=== PATIENT | male | born 2000 | race African-American/Black ===

== ENCOUNTER 2019-01-07 13:43 | Inpatient (IN) | payer BC ==
[~2019-01-07] VITALS: Ht 188 cm; Wt 77.1 kg
[2019-01-07] MEDS ORDERED: LIDO:MAALOX 1:1 20 ML SINGLE DOSE. SWSW ONE (14:45)
--- NOTE | 2019-01-07 15:09 | RAD ---
CHEST PA LATERAL CLINICAL INDICATION: CHEST PAIN SINCE THIS MORNING COMPARISON: None FINDINGS: Heart is normal in size. Moderate-sized right pneumothorax is seen. Left lung is clear. No mediastinal shift. Visualized bony thorax is within normal limits. IMPRESSION: Moderate-sized right pneumothorax without mediastinal shift. Critical findings were identified on 01/07/2019 3:03 PM, read back and verified with PACKAGE SEALER MACHINE Bafus on 01/07/2019 3:[address] Hugo Palomino DO. Electronically signed by: Hugo Palomino DO (01/07/2019 3:06 PM) [facility]
[2019-01-07] MEDS ORDERED: fentaNYL PF VIAL 100 MCG/2 ML VIAL ONE (15:25)
[2019-01-07] MEDS ORDERED: fentaNYL PF VIAL 100 MCG/2 ML VIAL IV ONE ×2 (15:30→16:45)
--- NOTE | 2019-01-07 15:31 | PHYS DOC ---
Past Medical History Past Medical History: No Pertinent History (TEETEE HOLT APRN) Past Surgical History: No Surgical History (TEETEE HOLT APRN) Alcohol Use: None Drug Use: None (TEETEE HOLT APRN) Adult General Chief Complaint Chief Complaint: CHEST WALL PAIN HPI HPI Patient is a 18 year old who presents with mid chest pain that started last night with sharp pain with inspiration and shortness of air. Patient rates his pain a 7 out of 10. Patient is belching the room. (TEETEE HOLT APRN) Review of Systems Review of Systems Constitutional: Denies fever or chills [] Eyes: Denies change in visual acuity, redness, or eye pain [] HENT: Denies nasal congestion or sore throat [] Respiratory: Denies cough. shortness of breath [] Cardiovascular: Sharp chest pain with an inspiration GI: Denies abdominal pain, nausea, vomiting, bloody stools or diarrhea [] : Denies dysuria or hematuria [] Musculoskeletal: Denies back pain or joint pain [] Integument: Denies rash or skin lesions [] Neurologic: Denies headache, focal weakness or sensory changes [] All other systems were reviewed and found to be within normal limits, except as documented in this note. (TEETEE HOLT APRN) Current Medications Current Medications Current Medications Medications (Trade) Dose Ordered Sig/Bri Start Time Stop Time Status Last Admin Dose Admin Acetaminophen (Tylenol) 650 mg PRN Q4HRS PRN 01/07/19 16:15 Al Hydroxide/Mg Hydroxide (Mylanta Plus Xs) 30 ml PRN DAILY PRN 01/07/19 16:15 Albuterol Sulfate (Ventolin Neb Soln) 2.5 mg PRN Q4HRS PRN 01/07/19 16:15 Clonidine HCl (Catapres) 0.1 mg PRN Q6HRS PRN 01/07/19 16:15 Diphenhydramine HCl (Benadryl) 25 mg PRN Q4HRS PRN 01/07/19 16:15 Docusate Sodium (Colace) 100 mg PRN BID PRN 01/07/19 16:15 Fentanyl Citrate (Fentanyl 2ml Vial) 100 mcg STK-MED ONCE 01/07/19 15:25 01/07/19 15:26 DC Guaifenesin (Robitussin) 200 mg PRN Q4HRS PRN 01/07/19 16:15 Lorazepam (Ativan) 0.5 mg PRN Q4HRS PRN 01/07/19 16:15 Multi-Ingredient Mouthwash/Gargle (Gi Cocktail) 20 ml 1X ONCE 01/07/19 14:45 01/07/19 14:57 DC 01/07/19 15:05 20 ML Ondansetron HCl (Zofran) 4 mg PRN Q4HRS PRN 01/07/19 16:15 Sodium Monofluorophosphate (Fleet Adult) 133 ml PRN DAILY PRN 01/07/19 16:15 Zolpidem Tartrate (Ambien) 5 mg PRN QHS PRN 01/07/19 16:15 (DAMON FRANKLIN MD) Allergies Allergies Allergies Coded Allergies Type Severity Reaction Last Updated Verified No Known Drug Allergies 01/07/19 No (DAMON FRANKLIN MD) Physical Exam Physical Exam Constitutional: Well developed, well nourished, no acute distress, non-toxic appearance. [] HENT: Normocephalic, atraumatic, bilateral external ears normal, oropharynx moist, no oral exudates, nose normal. [] Eyes: PERRLA, EOMI, conjunctiva normal, no discharge. [] Neck: Normal range of motion, no tenderness, supple, no stridor. [] Cardiovascular:Heart rate regular rhythm, no murmur [] Lungs & Thorax: Bilateral upper breath sounds clear to auscultation, Lower lung lobes diminished. [] Abdomen: Bowel sounds normal, soft, no tenderness, no masses, no pulsatile masses. [] Skin: Warm, dry, no erythema, no rash. [] Back: No tenderness, no CVA tenderness. [] Extremities: No tenderness, no cyanosis, no clubbing, ROM intact, no edema. [] Neurologic: Alert and oriented X 3, normal motor function, normal sensory function, no focal deficits noted. [] Psychologic: Affect normal, judgement normal, mood normal. [] (TEETEE HOLT APRN) Current Patient Data Vital Signs Vital Signs Date Time Temp Pulse Resp B/P (MAP) Pulse Ox O2 Delivery O2 Flow Rate FiO2 3/18/19 15:33 18 98 Room Air 01/07/19 14:11 97.8 71 148/72 (97) 97.8 (DAMON FRANKLIN MD) EKG EKG [] (TEETEE HOLT APRN) Radiology/Procedures Radiology/Procedures [] (TEETEE HOLT APRN) Radiology/Procedures PROCEDURE: CHEST PA & LATERAL CHEST PA LATERAL CLINICAL INDICATION: CHEST PAIN SINCE THIS MORNING COMPARISON: None FINDINGS: Heart is normal in size. Moderate-sized right pneumothorax is seen. Left lung is clear. No mediastinal shift. Visualized bony thorax is within normal limits. IMPRESSION: Moderate-sized right pneumothorax without mediastinal shift. PROCEDURE: CHEST AP ONLY Indication:CHEST TUBE PLACEMENT TECHNIQUE:Portable AP chest X-ray COMPARISON:Study from the same day earlier FINDINGS: Heart is normal in size. Interval placement of right-sided chest tube with resolution of previously seen pneumothorax. Lungs are clear. Bones within normal limits. IMPRESSION: Interval resolution of previous is seen right pneumothorax status post placement of right chest tube. (DAMON FRANKLIN MD) Impressions: [facility] [address] [place], [place] [id number] IMAGING REPORT Signed PATIENT: KESHAV WAGNER ACCOUNT: [id number] : 2000 LOCATION: ER AGE: 18 SEX: M EXAM STATUS: REG ER ORD. PHYSICIAN: TEETEE HOLT APRN REASON: chest pain since this morning PROCEDURE: CHEST PA & LATERAL CHEST PA LATERAL CLINICAL INDICATION: CHEST PAIN SINCE THIS MORNING COMPARISON: None FINDINGS: Heart is normal in size. Moderate-sized right pneumothorax is seen. Left lung is clear. No mediastinal shift. Visualized bony thorax is within normal limits. IMPRESSION: Moderate-sized right pneumothorax without mediastinal shift. Critical findings were identified on 01/07/2019 3:03 PM, read back and verified with INJECTION MOLDING TECHNICIAN Anais on 01/07/2019 3:[address] Hugo Palomino DO. Electronically signed by: Hugo Palomino DO (01/07/2019 3:06 PM) [facility] DICTATED and SIGNED BY: HUGO PALOMINO DO DATE: 01/07/19 [id number] (TEETEE HOLT APRN) Course & Med Decision Making Course & Med Decision Making Patient is a 18 year old who presents with mid chest pain that started last night with sharp pain with inspiration and shortness of air. Patient rates his pain a 7 out of 10. Patient is belching the room. Alert and oriented. Speaks in full clear sentences. Vital signs are 100% on room air, 71 heart rate, 140/72, afebrile. Skin pink warm and dry. Mucous membranes moist. Denies dizziness, abdominal pain, nausea, vomiting, or diarrhea, drug use, cough, recent illness, fever. PERC negative, WELLs negative. Lungs are clear to auscultation in upper lobes but slightly diminished in lower lobes. Ambulatory with a steady gait. Ambulatory with a steady gait. Chest x-ray shows Moderate-sized right pneumothorax without mediastinal shift. I have spoken to the family about findings and Dr. Franklin who is now assuming care. (TEETEE HOLT APRN) Course & Med Decision Making 4:25 PM: Patient is a 18-year-old presented with shortness of breath and chest pain, was found to have a pneumothorax. I assumed care from nurse practitioner. He did not exhibit clinical signs or radiographic findings of tension. An arrow pneumocath was placed in the right chest after informed consent was obtained from the patient with resultant improvement in his symptoms and radiographic findings. The patient will be admitted to the hospitalist who has graciously agreed to accept the patient. Pulmonary was consulted as well PROCEDURE NOTE: The right anterior chest wall is prepped with Betadine, as well as a ChloraPrep , after timeout was performed, and informed consent was obtained from the patient. The skin was anesthetized with 1% lidocaine, and the Arrow 8 [place] pneumocath was inserted in the second intercostal space, which resulted in improvement of the patient's clinical symptoms and breath sounds. Follow-up chest x-ray was obtained. CRITICAL CARE TIME: 45 Minutes, excluding any procedures and care of other patients. (DAMON FRANKLIN MD) Dragon Disclaimer Dragon Disclaimer This electronic medical record was generated, in whole or in part, using a voice recognition dictation system. (TEETEE HOLT APRN) Departure Departure Impression: Primary Impression: Pneumothorax Disposition: ADMITTED INPATIENT Admitting Physician: Other (Juliana) (DAMON FRANKLIN MD) Condition: STABLE Referrals: NO PCP (PCP) TEETEE HOLT APRN Jan 07, 2019 15:31 DAMON FRANKLIN MD Jan 07, 2019 16:28
--- NOTE | 2019-01-07 16:09 | RAD ---
Indication:CHEST TUBE PLACEMENT TECHNIQUE:Portable AP chest X-ray COMPARISON:Study from the same day earlier FINDINGS: Heart is normal in size. Interval placement of right-sided chest tube with resolution of previously seen pneumothorax. Lungs are clear. Bones within normal limits. IMPRESSION: Interval resolution of previous is seen right pneumothorax status post placement of right chest tube. Electronically signed by: uHgo Palomino DO (01/07/2019 4:06 PM) [facility]
[2019-01-07] MEDS ORDERED: MAG HYDROX/ALUMINUM HYD/SIMETH 30 ML ORAL.SUSP PO PRN (16:15)
[2019-01-07] MEDS ORDERED: cloNIDine HCL 0.1 MG TABLET PO PRN (16:15)
[2019-01-07] MEDS ORDERED: guaiFENesin ORAL 200 MG/10 ML LIQUID. PO PRN (16:15)
[2019-01-07] MEDS ORDERED: ZOLPIDEM 5 MG TABLET. PO PRN (16:15)
[2019-01-07] MEDS ORDERED: DOCUSATE SODIUM 100 MG CAPSULE. PO PRN (16:15)
[2019-01-07] MEDS ORDERED: SODIUM PHOSPHATES 19/7GM 133 ML ENEMA. PR PRN (16:15)
[2019-01-07] MEDS ORDERED: ALBUTEROL SULFATE 2.5 MG/3 ML NEBU. NEB PRN (16:15)
[2019-01-07] MEDS ORDERED: LORazepam 0.5 MG TABLET PO PRN (16:15)
[2019-01-07 17:03] LABS: BASO % 0 % (0-3); EOS % 0 % (0-3); HEMATOCRIT 41.7 % (39.0-53.0); HEMOGLOBIN 13.5 g/dL (13.0-17.5); LYMPH # 1.8 x10^3/uL (1.0-4.8); LYMPH % 16 % (24-48); MEAN CORPUSCULAR HEMOGLOBIN 26 pg (25-35); MEAN CORPUSCULAR HGB CONC 32 g/dL (31-37); MEAN CORPUSCULAR VOLUME 80 fL (79-100); MONO # 0.7 x10^3/uL (0.0-1.1); MONO % 6 % (0-9); NEUT # 9.1 x10^3uL (1.8-7.7); NEUT % 78 % (31-73); PLATELET COUNT 184 x10^3/uL (140-400); RED BLOOD COUNT 5.25 x10^6/uL (4.30-5.70); WHITE BLOOD COUNT 11.7 x10^3/uL (4.0-11.0)
[2019-01-07 17:12] LABS: CALCIUM 9.3 mg/dL (8.5-10.1); CREATININE 1.2 mg/dL (0.7-1.3); GFR 93.4; POTASSIUM 3.4 mmol/L (3.5-5.1)
[2019-01-07 17:45] VITALS: BP 136/71
[2019-01-07] MEDS: ACETAMINOPHEN 325 MG TABLET. PO PRN (19:30)
[2019-01-07 19:46] VITALS: BP 133/72
[2019-01-07] MEDS: KETOROLAC 30 MG/ML VIAL. IV PRN (20:49)
[2019-01-07] MEDS: diphenhydrAMINE 50 MG/ML VIAL IVP PRN (20:49)
--- NOTE | 2019-01-07 20:49 | PDOC1 ---
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 He describes pain as a sharp sensation associated shortness of breath. The patient' s pain was rated initial at as 6 out of 10 subsequently progressing to a 9 out of 10 once he got home from work. Patient denies palpitations no radiation to the jaw or the arm or history of coughing spells nor recent history of infections were given but patient. Due to the severe pain he experiences decided to come to the emergency department for evaluation where he was found to have a right pneumothorax, chest tube has been placed we have been asked to admit the patient for further care. At the time my evaluation patient is in no apparent distress pain seems to be well-controlled no nausea vomiting has been reported no other concerns or complaints were voiced by the patient. Plan of care is going detail all his concerns address to the best of my abilities Past Medical History Cardiovascular: No pertinent hx Past Surgical History Past Surgical History: No pertinent history Social History Smoke: No ALCOHOL: none Drugs: None Current Medications Current Medications Current Medications Medications (Trade) Dose Ordered Sig/Bri Start Time Stop Time Status Last Admin Dose Admin Acetaminophen (Tylenol) 650 mg PRN Q4HRS PRN 01/07/19 16:15 Al Hydroxide/Mg Hydroxide (Mylanta Plus Xs) 30 ml PRN DAILY PRN 01/07/19 16:15 Albuterol Sulfate (Ventolin Neb Soln) 2.5 mg PRN Q4HRS PRN 01/07/19 16:15 Clonidine HCl (Catapres) 0.1 mg PRN Q6HRS PRN 01/07/19 16:15 Diphenhydramine HCl (Benadryl) 25 mg PRN Q4HRS PRN 01/07/19 16:15 Docusate Sodium (Colace) 100 mg PRN BID PRN 01/07/19 16:15 Fentanyl Citrate (Fentanyl 2ml Vial) 50 mcg 1X ONCE 01/07/19 16:45 01/07/19 16:46 DC 01/07/19 16:51 50 MCG Guaifenesin (Robitussin) 200 mg PRN Q4HRS PRN 01/07/19 16:15 Ketorolac Tromethamine (Toradol 30mg Vial) 30 mg PRN Q6HRS PRN 01/07/19 19:45 01/12/19 19:44 Lorazepam (Ativan) 0.5 mg PRN Q4HRS PRN 01/07/19 16:15 Multi-Ingredient Mouthwash/Gargle (Gi Cocktail) 20 ml 1X ONCE 01/07/19 14:45 01/07/19 14:57 DC 01/07/19 15:05 20 ML Ondansetron HCl (Zofran) 4 mg PRN Q4HRS PRN 01/07/19 16:15 Sodium Monofluorophosphate (Fleet Adult) 133 ml PRN DAILY PRN 01/07/19 16:15 Zolpidem Tartrate (Ambien) 5 mg PRN QHS PRN 01/07/19 16:15 Allergies Allergies Allergies Coded Allergies Type Severity Reaction Last Updated Verified No Known Drug Allergies 01/07/19 No ROS Review of System CONSTITUTIONAL: No fever or chills EYES: No recent changes SKIN: No rash or itching CARDIOVASCULAR: No chest pain, syncope, palpitations, or edema RESPIRATORY: No SOB or cough GASTROINTESTINAL: No nausea, vomiting or abdominal pain NEUROLOGICAL: No headaches or weakness ENDOCRINE: No cold or heat intolerance GENITOURINARY: No urgency or frequency of urination MUSCULOSKELETAL: No back pain or joint pain LYMPHATICS: No enlarged lymph nodes PSYCHIATRIC: No anxiety or depression Physical Exam Physical Exam GEN.: No apparent distress. Alert and oriented. HEENT: Head is normocephalic, atraumatic NECK: Supple. LUNGS: Clear to auscultation. HEART: RRR, S1, S2 present. Peripheral pulses intact ABDOMEN: Soft, nontender. Positive bowel sounds. EXTREMITIES: Without any cyanosis. NEUROLOGIC: Normal speech, normal tone PSYCHIATRIC: Normal affect, normal mood. SKIN: No ulcerations Vitals Vitals Vital Signs Date Time Temp Pulse Resp B/P (MAP) Pulse Ox O2 Delivery O2 Flow Rate FiO2 01/07/19 19:47 99 Room Air 01/07/19 19:46 98.4 69 18 133/72 (92) 98.4 01/07/19 17:45 2.0 Labs Labs Laboratory Tests Test 01/07/19 16:57 White Blood Count 11.7 x10^3/uL (4.0-11.0) Red Blood Count 5.25 x10^6/uL (4.30-5.70) Hemoglobin 13.5 g/dL (13.0-17.5) Hematocrit 41.7 % (39.0-53.0) Mean Corpuscular Volume 80 fL (79-100) Mean Corpuscular Hemoglobin 26 pg (25-35) Mean Corpuscular Hemoglobin Concent 32 g/dL (31-37) Red Cell Distribution Width 14.0 % (11.5-14.5) Platelet Count 184 x10^3/uL (140-400) Neutrophils (%) (Auto) 78 % (31-73) Lymphocytes (%) (Auto) 16 % (24-48) Monocytes (%) (Auto) 6 % (0-9) Eosinophils (%) (Auto) 0 % (0-3) Basophils (%) (Auto) 0 % (0-3) Neutrophils # (Auto) 9.1 x10^3uL (1.8-7.7) Lymphocytes # (Auto) 1.8 x10^3/uL (1.0-4.8) Monocytes # (Auto) 0.7 x10^3/uL (0.0-1.1) Eosinophils # (Auto) 0.0 x10^3/uL (0.0-0.7) Basophils # (Auto) 0.0 x10^3/uL (0.0-0.2) Sodium Level 139 mmol/L (136-145) Potassium Level 3.4 mmol/L (3.5-5.1) Chloride Level 103 mmol/L (98-107) Carbon Dioxide Level 26 mmol/L (21-32) Anion Gap 10 (6-14) Blood Urea Nitrogen 15 mg/dL (8-26) Creatinine 1.2 mg/dL (0.7-1.3) Estimated GFR (Cockcroft-Gault) 93.4 Glucose Level 112 mg/dL (70-99) Calcium Level 9.3 mg/dL (8.5-10.1) Laboratory Tests Test 01/07/19 16:57 White Blood Count 11.7 x10^3/uL (4.0-11.0) Red Blood Count 5.25 x10^6/uL (4.30-5.70) Hemoglobin 13.5 g/dL (13.0-17.5) Hematocrit 41.7 % (39.0-53.0) Mean Corpuscular Volume 80 fL (79-100) Mean Corpuscular Hemoglobin 26 pg (25-35) Mean Corpuscular Hemoglobin Concent 32 g/dL (31-37) Red Cell Distribution Width 14.0 % (11.5-14.5) Platelet Count 184 x10^3/uL (140-400) Neutrophils (%) (Auto) 78 % (31-73) Lymphocytes (%) (Auto) 16 % (24-48) Monocytes (%) (Auto) 6 % (0-9) Eosinophils (%) (Auto) 0 % (0-3) Basophils (%) (Auto) 0 % (0-3) Neutrophils # (Auto) 9.1 x10^3uL (1.8-7.7) Lymphocytes # (Auto) 1.8 x10^3/uL (1.0-4.8) Monocytes # (Auto) 0.7 x10^3/uL (0.0-1.1) Eosinophils # (Auto) 0.0 x10^3/uL (0.0-0.7) Basophils # (Auto) 0.0 x10^3/uL (0.0-0.2) Sodium Level 139 mmol/L (136-145) Potassium Level 3.4 mmol/L (3.5-5.1) Chloride Level 103 mmol/L (98-107) Carbon Dioxide Level 26 mmol/L (21-32) Anion Gap 10 (6-14) Blood Urea Nitrogen 15 mg/dL (8-26) Creatinine 1.2 mg/dL (0.7-1.3) Estimated GFR (Cockcroft-Gault) 93.4 Glucose Level 112 mg/dL (70-99) Calcium Level 9.3 mg/dL (8.5-10.1) VTE Prophylaxis Ordered VTE Prophylaxis Devices: Yes VTE Pharmacological Prophylaxi: No Assessment/Plan Assessment/Plan Spontaneous right pneumothorax Plan: Pain management Consult Dr. Hendricks for chest tube management further recommendations based on clinical course. DVT prophylaxis: SCD NOBLE MUNOZ MD Jan 07, 2019 20:49
[2019-01-07 23:07] VITALS: BP 142/76
[2019-01-08] MEDS: ACETAMINOPHEN 325 MG TABLET. PO PRN (00:36)
[2019-01-08] MEDS: diphenhydrAMINE 50 MG/ML VIAL IVP PRN (00:39)
[2019-01-08 03:14] VITALS: BP 119/68
[2019-01-08] MEDS: ONDANSETRON PF 4 MG/2 ML VIAL. IV PRN ×2 (05:53→20:59)
[2019-01-08 07:00] VITALS: BP 137/71
--- NOTE | 2019-01-08 08:01 | PDOC ---
PROGRESS NOTES Chief Complaint Chief Complaint Spontaneous right pneumothorax Hypokalemia Plan: Pain management Consult Dr. Hendricks for chest tube management further recommendations based on clinical course. 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 He describes pain as a sharp sensation associated shortness of breath. The patient's pain was rated initial at as 6 out of 10 subsequently progressing to a 9 out of 10 once he got home from work. Patient denies palpitations no radiation to the jaw or the arm or history of coughing spells nor recent history of infections were given but patient. Due to the severe pain he experiences decided to come to the emergency department for evaluation where he was found to have a right pneumothorax, chest tube has been placed we have been asked to admit the patient for further care. He has some pain and nausea this morning. No air leak. CXR post CT placement shows resolution of PTX. Plan: Consult pulm. Likely needs high res CT to assess for apical blebs as patient has no significant pulm hx. Pain control, IV fentanyl and toradol added Zofran and compazine for his nausea Vitals Vitals Vital Signs Date Time Temp Pulse Resp B/P (MAP) Pulse Ox O2 Delivery O2 Flow Rate FiO2 01/08/19 03:14 98.1 50 16 119/68 (85) 100 Room Air 98.1 01/07/19 20:00 2.0 Physical Exam General: Alert, Oriented X3, Cooperative Heart: Regular rate, Normal S1, Normal S2, No murmurs, Gallops Lungs: Clear Abdomen: Normal bowel sounds, Soft, No tenderness, No hepatosplenomegaly Extremities: No clubbing, No cyanosis, No edema, Normal pulses Skin: No rashes, No breakdown, No significant lesion Labs LABS Laboratory Tests Test 01/07/19 16:57 White Blood Count 11.7 x10^3/uL (4.0-11.0) Red Blood Count 5.25 x10^6/uL (4.30-5.70) Hemoglobin 13.5 g/dL (13.0-17.5) Hematocrit 41.7 % (39.0-53.0) Mean Corpuscular Volume 80 fL (79-100) Mean Corpuscular Hemoglobin 26 pg (25-35) Mean Corpuscular Hemoglobin Concent 32 g/dL (31-37) Red Cell Distribution Width 14.0 % (11.5-14.5) Platelet Count 184 x10^3/uL (140-400) Neutrophils (%) (Auto) 78 % (31-73) Lymphocytes (%) (Auto) 16 % (24-48) Monocytes (%) (Auto) 6 % (0-9) Eosinophils (%) (Auto) 0 % (0-3) Basophils (%) (Auto) 0 % (0-3) Neutrophils # (Auto) 9.1 x10^3uL (1.8-7.7) Lymphocytes # (Auto) 1.8 x10^3/uL (1.0-4.8) Monocytes # (Auto) 0.7 x10^3/uL (0.0-1.1) Eosinophils # (Auto) 0.0 x10^3/uL (0.0-0.7) Basophils # (Auto) 0.0 x10^3/uL (0.0-0.2) Sodium Level 139 mmol/L (136-145) Potassium Level 3.4 mmol/L (3.5-5.1) Chloride Level 103 mmol/L (98-107) Carbon Dioxide Level 26 mmol/L (21-32) Anion Gap 10 (6-14) Blood Urea Nitrogen 15 mg/dL (8-26) Creatinine 1.2 mg/dL (0.7-1.3) Estimated GFR (Cockcroft-Gault) 93.4 Glucose Level 112 mg/dL (70-99) Calcium Level 9.3 mg/dL (8.5-10.1) Comment Review of Relevant I have reviewed the following items davide (where applicable) has been applied. Labs Laboratory Tests Test 01/07/19 16:57 White Blood Count 11.7 x10^3/uL (4.0-11.0) Red Blood Count 5.25 x10^6/uL (4.30-5.70) Hemoglobin 13.5 g/dL (13.0-17.5) Hematocrit 41.7 % (39.0-53.0) Mean Corpuscular Volume 80 fL (79-100) Mean Corpuscular Hemoglobin 26 pg (25-35) Mean Corpuscular Hemoglobin Concent 32 g/dL (31-37) Red Cell Distribution Width 14.0 % (11.5-14.5) Platelet Count 184 x10^3/uL (140-400) Neutrophils (%) (Auto) 78 % (31-73) Lymphocytes (%) (Auto) 16 % (24-48) Monocytes (%) (Auto) 6 % (0-9) Eosinophils (%) (Auto) 0 % (0-3) Basophils (%) (Auto) 0 % (0-3) Neutrophils # (Auto) 9.1 x10^3uL (1.8-7.7) Lymphocytes # (Auto) 1.8 x10^3/uL (1.0-4.8) Monocytes # (Auto) 0.7 x10^3/uL (0.0-1.1) Eosinophils # (Auto) 0.0 x10^3/uL (0.0-0.7) Basophils # (Auto) 0.0 x10^3/uL (0.0-0.2) Sodium Level 139 mmol/L (136-145) Potassium Level 3.4 mmol/L (3.5-5.1) Chloride Level 103 mmol/L (98-107) Carbon Dioxide Level 26 mmol/L (21-32) Anion Gap 10 (6-14) Blood Urea Nitrogen 15 mg/dL (8-26) Creatinine 1.2 mg/dL (0.7-1.3) Estimated GFR (Cockcroft-Gault) 93.4 Glucose Level 112 mg/dL (70-99) Calcium Level 9.3 mg/dL (8.5-10.1) Laboratory Tests Test 01/07/19 16:57 White Blood Count 11.7 x10^3/uL (4.0-11.0) Red Blood Count 5.25 x10^6/uL (4.30-5.70) Hemoglobin 13.5 g/dL (13.0-17.5) Hematocrit 41.7 % (39.0-53.0) Mean Corpuscular Volume 80 fL (79-100) Mean Corpuscular Hemoglobin 26 pg (25-35) Mean Corpuscular Hemoglobin Concent 32 g/dL (31-37) Red Cell Distribution Width 14.0 % (11.5-14.5) Platelet Count 184 x10^3/uL (140-400) Neutrophils (%) (Auto) 78 % (31-73) Lymphocytes (%) (Auto) 16 % (24-48) Monocytes (%) (Auto) 6 % (0-9) Eosinophils (%) (Auto) 0 % (0-3) Basophils (%) (Auto) 0 % (0-3) Neutrophils # (Auto) 9.1 x10^3uL (1.8-7.7) Lymphocytes # (Auto) 1.8 x10^3/uL (1.0-4.8) Monocytes # (Auto) 0.7 x10^3/uL (0.0-1.1) Eosinophils # (Auto) 0.0 x10^3/uL (0.0-0.7) Basophils # (Auto) 0.0 x10^3/uL (0.0-0.2) Sodium Level 139 mmol/L (136-145) Potassium Level 3.4 mmol/L (3.5-5.1) Chloride Level 103 mmol/L (98-107) Carbon Dioxide Level 26 mmol/L (21-32) Anion Gap 10 (6-14) Blood Urea Nitrogen 15 mg/dL (8-26) Creatinine 1.2 mg/dL (0.7-1.3) Estimated GFR (Cockcroft-Gault) 93.4 Glucose Level 112 mg/dL (70-99) Calcium Level 9.3 mg/dL (8.5-10.1) Medications Current Medications Multi-Ingredient Mouthwash/Gargle (Gi Cocktail) 20 ml 1X ONCE SWSW Last administered on 01/07/19at 15:05; Start 01/07/19 at 14:45; Stop 01/07/19 at 14:57 ; Status DC Fentanyl Citrate (Fentanyl 2ml Vial) 50 mcg 1X ONCE IV Last administered on at 15:33; Start 01/07/19 at 15:30; Stop 01/07/19 at 15:31; Status DC Fentanyl Citrate (Fentanyl 2ml Vial) 100 mcg STK-MED ONCE .ROUTE ; Start at 15:25; Stop 01/07/19 at 15:26; Status DC Ondansetron HCl (Zofran) 4 mg PRN Q4HRS PRN IV NAUSEA/VOMITING Last administered on 01/08/19 05:53; Start 01/07/19 at 16:15 Zolpidem Tartrate (Ambien) 5 mg PRN QHS PRN PO INSOMNIA; Start 01/07/19 at 16: 15 Acetaminophen (Tylenol) 650 mg PRN Q4HRS PRN PO TEMP OVER 100.4F OR MILD PAIN Last administered on 01/07/19 19:30; Start 01/07/19 at 16:15 Al Hydroxide/Mg Hydroxide (Mylanta Plus Xs) 30 ml PRN DAILY PRN PO HEARTBURN / GAS; Start 01/07/19 at 16:15 Clonidine HCl (Catapres) 0.1 mg PRN Q6HRS PRN PO SBP>160 OR DBP>90; Start 01/07 at 16:15 Sodium Monofluorophosphate (Fleet Adult) 133 ml PRN DAILY PRN IA CONSTIPATION; Start 01/07/19 at 16:15 Diphenhydramine HCl (Benadryl) 25 mg PRN Q4HRS PRN IVP ITCHING Last administered on 01/08/19 00:39; Start 01/07/19 at 16:15 Docusate Sodium (Colace) 100 mg PRN BID PRN PO CONSTIPATION; Start 01/07/19 at 16:15 Albuterol Sulfate (Ventolin Neb Soln) 2.5 mg PRN Q4HRS PRN NEB SHORTNESS OF BREATH; Start 01/07/19 at 16:15 Guaifenesin (Robitussin) 200 mg PRN Q4HRS PRN PO COUGH; Start 01/07/19 at 16:15 Lorazepam (Ativan) 0.5 mg PRN Q4HRS PRN PO ANXIETY / AGITATION Last administered on 01/07/19 20:49; Start 01/07/19 at 16:15 Fentanyl Citrate (Fentanyl 2ml Vial) 50 mcg 1X ONCE IV Last administered on 16:51; Start 01/07/19 at 16:45; Stop 01/07/19 at 16:46; Status DC Ketorolac Tromethamine (Toradol 30mg Vial) 30 mg PRN Q6HRS PRN IV PAIN Last administered on 01/07/19 20:49; Start 01/07/19 at 19:45; Stop 01/12/19 at 19:44 Vitals/I & O Vital Sign - Last 24 Hours 01/07/19 01/07/19 01/07/19 01/07/19 14:11 15:33 15:55 16:03 Temp 97.8 97.8 Pulse 71 62 60 Resp 20 18 16 15 B/P (MAP) 148/72 (97) 151/62 (91) 87/47 (60) Pulse Ox 100 98 100 100 O2 Delivery Room Air Room Air Nasal Cannula Nasal Cannula O2 Flow Rate 2.0 2.0 01/07/19 01/07/19 01/07/19 01/07/19 16:05 16:33 17:03 17:33 Pulse 70 60 66 64 Resp 16 16 15 16 B/P (MAP) 100/58 (72) 153/69 (97) 153/81 (105) 161/78 (105) Pulse Ox 100 100 100 100 O2 Delivery Nasal Cannula Nasal Cannula Nasal Cannula Nasal Cannula O2 Flow Rate 2.0 2.0 2.0 2.0 01/07/19 01/07/19 01/07/19 01/07/19 17:45 19:46 19:47 20:00 Temp 98.9 98.4 98.9 98.4 Pulse 61 69 Resp 16 18 B/P (MAP) 136/71 (92) 133/72 (92) Pulse Ox 100 100 99 O2 Delivery Nasal Cannula Room Air Room Air O2 Flow Rate 2.0 2.0 01/07/19 01/08/19 23:07 03:14 Temp 99.2 98.1 99.2 98.1 Pulse 61 50 Resp 16 16 B/P (MAP) 142/76 (98) 119/68 (85) Pulse Ox 100 100 O2 Delivery Room Air Room Air Intake and Output 01/07/19 01/07/19 01/08/19 15:00 23:00 07:00 Intake Total 500 ml 980 ml Balance 500 ml 980 ml ROME AGUIRRE MD Jan 08, 2019 08:01
[2019-01-08] MEDS ORDERED: POTASSIUM CHLORIDE 20 MEQ TABLET.ER. PO ONE (08:30)
[2019-01-08] MEDS: KETOROLAC 30 MG/ML VIAL. IV PRN ×2 (09:47→22:23)
--- NOTE | 2019-01-08 09:48 | RAD ---
Single view of the chest. 01/08/2019 9:13 AM Indication: POST CHEST TUBE PLACEMENT Comparison: Chest radiographs, yesterday Findings: Right thoracostomy tube remains in place. No pneumothorax is identified on current radiograph. The lungs are otherwise clear. Heart size is normal. No acute bony changes are seen. IMPRESSION: Right thoracostomy tube in place. No pneumothorax is identified. Electronically signed by: Herbert Starks MD (01/08/2019 9:46 AM) [id number]
--- NOTE | 2019-01-08 10:47 | CONS ---
DATE OF CONSULTATION: ATTENDING PHYSICIAN: Dr. Andrews REASON FOR CONSULTATION: Spontaneous pneumothorax. HISTORY OF PRESENT ILLNESS: The patient is a 18-year-old male who denies any significant tobacco use or substance abuse. 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 The patient says that this is the first time he ever had this kind of pain. He did not have any coughing spell prior to that. He was seen in the Emergency Room and was found to have moderate sized pneumothorax on the right side. He underwent small chest tube placement and his lung is now fully reexpanded. No other symptoms. No headaches, no nausea or vomiting, no diarrhea. However, he did have a bout of GI viral symptoms a week ago. PAST MEDICAL HISTORY: Unremarkable. PAST SURGICAL HISTORY: Unremarkable. SOCIAL HISTORY: He does not smoke and does not drink alcohol. ALLERGIES: None. MEDICATIONS: Reviewed as listed in the MRAD. SYSTEM REVIEW: As discussed in my history of present illness, otherwise noncontributory. PHYSICAL EXAMINATION: VITAL SIGNS: Stable. Pulse ox 100% on room air. NECK: Supple. LUNGS: Clear. CARDIOVASCULAR: Regular rate and rhythm. ABDOMEN: Soft. EXTREMITIES: With no pitting edema. LABORATORY DATA: Reviewed. White cell count 11.7 and hemoglobin 13.5. BUN and creatinine of 15 and 1.2. IMPRESSION: 1. Spontaneous right-sided pneumothorax in a patient who has no significant risk factors. The pneumothorax is now completely resolved. This is his first episode. We may do a CT of the chest to rule out any apical blebs. 2. No significant history of tobacco use. RECOMMENDATIONS: 1. The lung is now fully expanded after chest tube placement. I will place the chest tube to water seal. In next 24 hours, if there is no pneumo then we will consider doing clamping of the chest tube and then repeat chest x-ray. 2. We will also do a noncontrast CT chest tomorrow to assess for any apical blebs. 3. Pain control. 4. Discussed with patient and his father that if pneumothorax reoccurs in the same side in future, then he may need surgical intervention. FABRIZIO OCONNOR MD DR: VIOLETA/calin JOB#: [id number] / [id number]
[2019-01-08 10:53] VITALS: BP 128/63
--- NOTE | 2019-01-08 12:20 | NUR ---
Changed dressing on chest tube. This RN noted a scant amount of blood around the incision site when removing the old dressing. Site cleaned, 4x4 gauze, and transparent dressing applied to site. Pt tolerated without complaints.
[2019-01-08 15:00] VITALS: BP 135/79
--- NOTE | 2019-01-08 15:38 | NUR ---
SW following pt for anticipated dc needs. Chart reviewed. Pt lives at home with family. No discharge recommendation/SW needs noted at this time. Will continue to assess needs.
[2019-01-08 19:47] VITALS: BP 110/80
--- NOTE | 2019-01-08 21:15 | NUR ---
Patient complaining of increased pain [facility] Addendum: 01/08/19 at 2138 by Keturah Swanson RN Complaining of increased pain and soa upon inspiration, similar to that when he came to ER. Spoke with Dr. Lewis who advised to place chest tube back to wall suction and get CXR
--- NOTE | 2019-01-08 22:06 | RAD ---
PORTABLE CHEST 1V History: Chest tube, increasing pain, collapsed right lung Comparison: Exam earlier the same day Findings: AP portable view of the chest is submitted. There is again right chest tube with tip near the apex, no pneumothorax identified. Heart size is stable, within normal limits. There is no infiltrate or pleural fluid. Impression: 1. There is again small caliber right chest tube, no pneumothorax identified. Electronically signed by: Tj Yousif MD (01/08/2019 10:03 PM) [facility]
[2019-01-08 23:23] VITALS: BP 113/80
[2019-01-09 03:34] VITALS: BP 131/54
[2019-01-09 07:00] VITALS: BP 107/89
--- NOTE | 2019-01-09 07:47 | PDOC ---
PROGRESS NOTES Chief Complaint Chief Complaint Spontaneous right pneumothorax Hypokalemia Plan: Pain management Consult Dr. Hendricks for chest tube management further recommendations based on clinical course. 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 He describes pain as a sharp sensation associated shortness of breath. The patient's pain was rated initial at as 6 out of 10 subsequently progressing to a 9 out of 10 once he got home from work. Patient denies palpitations no radiation to the jaw or the arm or history of coughing spells nor recent history of infections were given but patient. Due to the severe pain he experiences decided to come to the emergency department for evaluation where he was found to have a right pneumothorax, chest tube has been placed we have been asked to admit the patient for further care. He has some pain and nausea this morning. No air leak. CXR post CT placement shows resolution of PTX. Plan: Consulted pulm. Likely needs high res CT to assess for apical blebs as patient has no significant pulm hx. Pain control, IV fentanyl and toradol added with good effect Zofran and compazine for his nausea Admitted for Spontaneous right-sided pneumothorax in a patient who has no significant risk factors. The pneumothorax is now completely resolved. This is his first episode. CT of the chest with no residual PTX or apical blebs. No significant history of tobacco use or asthma 1. The lung was fully expanded after chest tube placement. clamped the chest tube and if there is no pneumo then we will dc chest tube 2. CT chest with no apical blebs. 3. Pain control. 4. Discussed with patient and his father that if pneumothorax reoccurs in the same side in future, then he may need surgical intervention. Vitals Vitals Vital Signs Date Time Temp Pulse Resp B/P (MAP) Pulse Ox O2 Delivery O2 Flow Rate FiO2 01/09/19 07:00 98.4 70 18 107/89 (95) 100 Room Air 98.4 01/08/19 08:00 2.0 Physical Exam General: Alert, Oriented X3, Cooperative Heart: Regular rate, Normal S1, Normal S2, No murmurs, Gallops Lungs: Clear Abdomen: Normal bowel sounds, Soft, No tenderness, No hepatosplenomegaly Extremities: No clubbing, No cyanosis, No edema, Normal pulses Skin: No rashes, No breakdown, No significant lesion Comment Review of Relevant I have reviewed the following items davide (where applicable) has been applied. Labs Laboratory Tests Test 01/07/19 16:57 White Blood Count 11.7 x10^3/uL (4.0-11.0) Red Blood Count 5.25 x10^6/uL (4.30-5.70) Hemoglobin 13.5 g/dL (13.0-17.5) Hematocrit 41.7 % (39.0-53.0) Mean Corpuscular Volume 80 fL (79-100) Mean Corpuscular Hemoglobin 26 pg (25-35) Mean Corpuscular Hemoglobin Concent 32 g/dL (31-37) Red Cell Distribution Width 14.0 % (11.5-14.5) Platelet Count 184 x10^3/uL (140-400) Neutrophils (%) (Auto) 78 % (31-73) Lymphocytes (%) (Auto) 16 % (24-48) Monocytes (%) (Auto) 6 % (0-9) Eosinophils (%) (Auto) 0 % (0-3) Basophils (%) (Auto) 0 % (0-3) Neutrophils # (Auto) 9.1 x10^3uL (1.8-7.7) Lymphocytes # (Auto) 1.8 x10^3/uL (1.0-4.8) Monocytes # (Auto) 0.7 x10^3/uL (0.0-1.1) Eosinophils # (Auto) 0.0 x10^3/uL (0.0-0.7) Basophils # (Auto) 0.0 x10^3/uL (0.0-0.2) Sodium Level 139 mmol/L (136-145) Potassium Level 3.4 mmol/L (3.5-5.1) Chloride Level 103 mmol/L (98-107) Carbon Dioxide Level 26 mmol/L (21-32) Anion Gap 10 (6-14) Blood Urea Nitrogen 15 mg/dL (8-26) Creatinine 1.2 mg/dL (0.7-1.3) Estimated GFR (Cockcroft-Gault) 93.4 Glucose Level 112 mg/dL (70-99) Calcium Level 9.3 mg/dL (8.5-10.1) Medications Current Medications Multi-Ingredient Mouthwash/Gargle (Gi Cocktail) 20 ml 1X ONCE SWSW Last administered on 01/07/19 15:05; Start 01/07/19 at 14:45; Stop 01/07/19 at 14:57 ; Status DC Fentanyl Citrate (Fentanyl 2ml Vial) 50 mcg 1X ONCE IV Last administered on 15:33; Start 01/07/19 at 15:30; Stop 01/07/19 at 15:31; Status DC Fentanyl Citrate (Fentanyl 2ml Vial) 100 mcg STK-MED ONCE .ROUTE ; Start at 15:25; Stop 01/07/19 at 15:26; Status DC Ondansetron HCl (Zofran) 4 mg PRN Q4HRS PRN IV NAUSEA/VOMITING Last administered on 01/08/19 20:59; Start 01/07/19 at 16:15 Zolpidem Tartrate (Ambien) 5 mg PRN QHS PRN PO INSOMNIA Last administered on 23:53; Start 01/07/19 at 16:15 Acetaminophen (Tylenol) 650 mg PRN Q4HRS PRN PO TEMP OVER 100.4F OR MILD PAIN Last administered on 01/07/19 19:30; Start 01/07/19 at 16:15 Al Hydroxide/Mg Hydroxide (Mylanta Plus Xs) 30 ml PRN DAILY PRN PO HEARTBURN / GAS; Start 01/07/19 at 16:15 Clonidine HCl (Catapres) 0.1 mg PRN Q6HRS PRN PO SBP>160 OR DBP>90; Start 01/07 at 16:15 Sodium Monofluorophosphate (Fleet Adult) 133 ml PRN DAILY PRN MS CONSTIPATION; Start 01/07/19 at 16:15 Diphenhydramine HCl (Benadryl) 25 mg PRN Q4HRS PRN IVP ITCHING Last administered on 01/08/19at 00:39; Start 01/07/19 at 16:15 Docusate Sodium (Colace) 100 mg PRN BID PRN PO CONSTIPATION; Start 01/07/19 at 16:15 Albuterol Sulfate (Ventolin Neb Soln) 2.5 mg PRN Q4HRS PRN NEB SHORTNESS OF BREATH; Start 01/07/19 at 16:15 Guaifenesin (Robitussin) 200 mg PRN Q4HRS PRN PO COUGH; Start 01/07/19 at 16:15 Lorazepam (Ativan) 0.5 mg PRN Q4HRS PRN PO ANXIETY / AGITATION Last administered on 01/07/19at 20:49; Start 01/07/19 at 16:15 Fentanyl Citrate (Fentanyl 2ml Vial) 50 mcg 1X ONCE IV Last administered on at 16:51; Start 01/07/19 at 16:45; Stop 01/07/19 at 16:46; Status DC Ketorolac Tromethamine (Toradol 30mg Vial) 30 mg PRN Q6HRS PRN IV PAIN Last administered on 01/08/19at 22:23; Start 01/07/19 at 19:45; Stop 01/12/19 at 19:44 Potassium Chloride (Klor-Con) 40 meq 1X ONCE PO Last administered on at 09:46; Start 01/08/19 at 08:30; Stop 01/08/19 at 08:31; Status DC Vitals/I & O Vital Sign - Last 24 Hours 01/08/19 01/08/19 01/08/19 01/08/19 08:00 10:53 15:00 19:47 Temp 98.4 98.7 98.5 98.4 98.7 98.5 Pulse 81 76 67 Resp 18 B/P (MAP) 128/63 (84) 135/79 (97) 110/80 (90) Pulse Ox 99 100 100 O2 Delivery Room Air Room Air Room Air O2 Flow Rate 2.0 01/08/19 01/08/19 01/09/19 01/09/19 20:00 23:23 03:34 07:00 Temp 98.4 98.1 98.4 98.4 98.1 98.4 Pulse 63 55 70 Resp 18 B/P (MAP) 113/80 (91) 131/54 (79) 107/89 (95) Pulse Ox 100 99 100 O2 Delivery Room Air Room Air Room Air Room Air Intake and Output 3/19/19 3/19/19 3/20/19 15:00 23:00 07:00 Intake Total 500 ml 400 ml Output Total 0 ml 0 ml Balance 0 ml 500 ml 400 ml ROME AGUIRRE MD Jan 09, 2019 07:47
--- NOTE | 2019-01-09 08:21 | RAD ---
PROCEDURE: PORTABLE CHEST 1V CLINICAL INDICATION: PTX COMPARISON: 01/08/2019 FINDINGS: Chest tube is seen with its tip in the right lung apex. No pneumothorax identified. Cardiac and mediastinal contours unremarkable. No pulmonary consolidation or acute airspace disease. No acute osseous abnormalities identified. IMPRESSION: No pneumothorax. Electronically signed by: Hugo Palomino DO (01/09/2019 8:17 AM) [facility]
--- NOTE | 2019-01-09 09:02 | RAD ---
PQRS Compliance statement: One or more of the following individualized dose reduction techniques were utilized for this examination: 1. Automated exposure control. 2. Adjustment of the mA and/or kV according to patient size. 3. Use of iterative reconstruction technique. Indication:PTX R/O APICAL BLEB NO CONTRAST/PREV TECHNIQUE: CT chest without IV contrast with multiplanar reformats. COMPARISON: None FINDINGS: Heart is normal in size. No pericardial or pleural effusion. No enlarged axillary or mediastinal adenopathy. Evaluation of hilar lymphadenopathy is limited due to lack of IV contrast. Central airways are patent. Right anterior approach chest tube is seen with its tip in the right lung apex. No pneumothorax. No evidence of apical bleb or bullous disease. Small amount of emphysema is seen in the deep right chest wall likely from chest tube placement. Visualized sections through the upper abdomen are grossly within normal limits. No suspicious bony lesion. IMPRESSION: 1. No pneumothorax. No evidence of apical bleb or emphysematous changes. Electronically signed by: Hugo Palomino DO (01/09/2019 9:00 AM) [facility]
[2019-01-09 11:00] VITALS: BP 128/66
--- NOTE | 2019-01-09 11:28 | PDOC ---
PULMONARY PROGRESS NOTES Subjective no soa Vitals Vital Signs Date Time Temp Pulse Resp B/P (MAP) Pulse Ox O2 Delivery O2 Flow Rate FiO2 01/09/19 08:00 Room Air 2.0 01/09/19 07:00 98.4 70 18 107/89 (95) 100 98.4 General: Alert, No acute distress Lungs: Clear Cardiovascular: S1 Abdomen: Soft Neuro Exam: Alert Extremities: No Edema Skin: Warm Labs Laboratory Tests Test 01/07/19 16:57 White Blood Count 11.7 x10^3/uL (4.0-11.0) Red Blood Count 5.25 x10^6/uL (4.30-5.70) Hemoglobin 13.5 g/dL (13.0-17.5) Hematocrit 41.7 % (39.0-53.0) Mean Corpuscular Volume 80 fL (79-100) Mean Corpuscular Hemoglobin 26 pg (25-35) Mean Corpuscular Hemoglobin Concent 32 g/dL (31-37) Red Cell Distribution Width 14.0 % (11.5-14.5) Platelet Count 184 x10^3/uL (140-400) Neutrophils (%) (Auto) 78 % (31-73) Lymphocytes (%) (Auto) 16 % (24-48) Monocytes (%) (Auto) 6 % (0-9) Eosinophils (%) (Auto) 0 % (0-3) Basophils (%) (Auto) 0 % (0-3) Neutrophils # (Auto) 9.1 x10^3uL (1.8-7.7) Lymphocytes # (Auto) 1.8 x10^3/uL (1.0-4.8) Monocytes # (Auto) 0.7 x10^3/uL (0.0-1.1) Eosinophils # (Auto) 0.0 x10^3/uL (0.0-0.7) Basophils # (Auto) 0.0 x10^3/uL (0.0-0.2) Sodium Level 139 mmol/L (136-145) Potassium Level 3.4 mmol/L (3.5-5.1) Chloride Level 103 mmol/L (98-107) Carbon Dioxide Level 26 mmol/L (21-32) Anion Gap 10 (6-14) Blood Urea Nitrogen 15 mg/dL (8-26) Creatinine 1.2 mg/dL (0.7-1.3) Estimated GFR (Cockcroft-Gault) 93.4 Glucose Level 112 mg/dL (70-99) Calcium Level 9.3 mg/dL (8.5-10.1) Impression . 1. Spontaneous right-sided pneumothorax in a patient who has no significant risk factors. The pneumothorax is now completely resolved. This is his first episode. CT of the chest with no residual PTX or apical blebs. 2. No significant history of tobacco use. Plan . 1. The lung is now fully expanded after chest tube placement. will clamp the chest tube and if there is no pneumo then we will dc chest tube 2. CT chest with no apical blebs. 3. Pain control. 4. Discussed with patient and his father that if pneumothorax reoccurs in the same side in future, then he may need surgical intervention. FABRIZIO OCONNOR MD Jan 09, 2019 11:28
--- NOTE | 2019-01-09 12:53 | RAD ---
AP and Lateral Views of the Chest 01/09/2019 12:35 PM Indication: PNEUMOTHORAX, CHEST TUBE Comparison: Chest radiograph, yesterday Findings: Right thoracostomy tube remains in place. No pneumothorax is identified on current radiograph. The lungs are otherwise clear. Heart size is normal. No acute bony changes are seen. IMPRESSION: Right thoracostomy tube in place. No pneumothorax is identified. Electronically signed by: Herbert Starks MD (01/09/2019 12:50 PM) [id number]
[2019-01-09] MEDS ORDERED: IBUP-1007 PO (13:32)
[2019-01-09 14:04] VITALS: BP 146/82
--- NOTE | 2019-01-09 15:25 | NUR ---
Discharge Note: KESHAV PRESLEY JR [address] [place] [address] Discharge instructions and discharge home medications reviewed with Patient and a copy given. All questions have been answered and understanding verbalized. The following instructions and handouts were given: f/u with PCP within one week. Discontinued lines and drains: Peripheral IV intact. Patient discharged to Home or Self Care with mother via [facility].
--- NOTE | 2019-01-09 15:38 | PDOC3 ---
Discharge Summary Visit Information Date of Admission: Jan 07, 2019 Date of Discharge: Jan 09, 2019 Admitting Diagnosis: Spontaneous pneumothorax on right Final Diagnosis Spontaneous pneumothorax on right Brief Hospital Course Allergies Allergies Coded Allergies Type Severity Reaction Last Updated Verified No Known Drug Allergies 01/07/19 No Vital Signs Vital Signs Date Time Temp Pulse Resp B/P (MAP) Pulse Ox O2 Delivery O2 Flow Rate FiO2 01/09/19 14:04 98.0 73 18 146/82 (103) 100 Room Air 98.0 01/09/19 08:00 2.0 Lab Results Laboratory Tests Test 01/07/19 16:57 White Blood Count 11.7 x10^3/uL (4.0-11.0) Red Blood Count 5.25 x10^6/uL (4.30-5.70) Hemoglobin 13.5 g/dL (13.0-17.5) Hematocrit 41.7 % (39.0-53.0) Mean Corpuscular Volume 80 fL (79-100) Mean Corpuscular Hemoglobin 26 pg (25-35) Mean Corpuscular Hemoglobin Concent 32 g/dL (31-37) Red Cell Distribution Width 14.0 % (11.5-14.5) Platelet Count 184 x10^3/uL (140-400) Neutrophils (%) (Auto) 78 % (31-73) Lymphocytes (%) (Auto) 16 % (24-48) Monocytes (%) (Auto) 6 % (0-9) Eosinophils (%) (Auto) 0 % (0-3) Basophils (%) (Auto) 0 % (0-3) Neutrophils # (Auto) 9.1 x10^3uL (1.8-7.7) Lymphocytes # (Auto) 1.8 x10^3/uL (1.0-4.8) Monocytes # (Auto) 0.7 x10^3/uL (0.0-1.1) Eosinophils # (Auto) 0.0 x10^3/uL (0.0-0.7) Basophils # (Auto) 0.0 x10^3/uL (0.0-0.2) Sodium Level 139 mmol/L (136-145) Potassium Level 3.4 mmol/L (3.5-5.1) Chloride Level 103 mmol/L (98-107) Carbon Dioxide Level 26 mmol/L (21-32) Anion Gap 10 (6-14) Blood Urea Nitrogen 15 mg/dL (8-26) Creatinine 1.2 mg/dL (0.7-1.3) Estimated GFR (Cockcroft-Gault) 93.4 Glucose Level 112 mg/dL (70-99) Calcium Level 9.3 mg/dL (8.5-10.1) Brief Hospital Course 18-year-old gentleman with no past medical history 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 He describes pain as a sharp sensation associated shortness of breath. The patient's pain was rated initial at as 6 out of 10 subsequently progressing to a 9 out of 10 once he got home from work. Patient denies palpitations no radiation to the jaw or the arm or history of coughing spells nor recent history of infections were given but patient. Due to the severe pain he experiences decided to come to the emergency department for evaluation where he was found to have a right pneumothorax, chest tube has been placed and was admitted for further care. Consulted pulm. had high res CT to assess for apical blebs as patient has no significant pulm hx. Pain control, IV fentanyl and toradol added with good effect Zofran and compazine for his nausea Admitted for Spontaneous right-sided pneumothorax in a patient who has no significant risk factors. The pneumothorax is now completely resolved. This is his first episode. CT of the chest with no residual PTX or apical blebs. No significant history of tobacco use or asthma 1. The lung was fully expanded after chest tube placement. clamped the chest tube and if there is no pneumo then we will dc chest tube 2. CT chest with no apical blebs. 3. Pain control. 4. Discussed with patient and his father that if pneumothorax reoccurs in the same side in future, then he may need surgical intervention. Chest tube removed with no residual PTX, given 2 weeks of work restrictions Greater than 30 minutes spent on discharge including counseling and d/w family bedside Discharge Information Condition at Discharge: Improved Follow Up: Weeks (2) Disposition/Orders: D/C to Home Scheduled PRN Ibuprofen (Ibuprofen) 600 Mg Tablet, 600 MG PO PRN Q6HRS PRN for INFLAMMATION for 10 Days Prescribed by: ROME AGUIRRE MD on 01/09/19 1332 ROME AGUIRRE MD Jan 09, 2019 15:38
== END 2019-01-09 15:25 | disposition home or self-care (01) | DRG 201 ==
LOC: ER 13:43 → 6 SOUTH 16:30
PROVIDERS: ADMIT Internal Medicine; ATTEND Internal Medicine
PROC: 0W9930Z Drainage of Right Pleural Cavity with Drainage Device, Percutaneous Approach (ICD-10-PCS; principal; 2019-01-07)
DX: J93.83 Other pneumothorax (principal); E87.6 Hypokalemia
CPT/HCPCS: 36415; 71045; 71046; 71250; 80048; 85025; J1200; J1885; J2405; J3010